=== PATIENT | male | born 1980 | race Caucasian/White ===

== ENCOUNTER 2017-10-30 20:50 | Emergency (ER) | payer OTHER ==
[~2017-10-30] VITALS: Ht 185.4 cm; Wt 74.8 kg
[~2017-10-30 20:50] MED LIST: IBUP800 PO; Triamcinolone A15 G3 TOP
[2017-10-30] MEDS ORDERED: Bactrim Ds Tab1 EACH PO (21:23)
== END 2017-10-30 21:27 | disposition home or self-care (01) ==
LOC: ER 20:50
DX: L03.012 Cellulitis of left finger (principal); F17.200 Nicotine dependence, unspecified, uncomplicated
CPT/HCPCS: 10060; 99283-25